=== PATIENT | female | born 1955 | race Caucasian/White ===

== ENCOUNTER 2023-03-10 11:58 | Outpatient (RCR) | payer MEDICARE, OTHER, SELFPAY | END 2023-03-10 23:59 | disposition home or self-care (01) | LOC: RPT 11:58 | PROVIDERS: ATTENDING PHYSICIAN Internal Medicine | DX: G51.0 Bell's palsy (principal); Z73.6 Limitation of activities due to disability | CPT/HCPCS: 97010; 97110; 97124 ==

== ENCOUNTER 2023-03-23 11:34 | Outpatient (RCR) | payer MEDICARE, OTHER, SELFPAY | END 2023-03-23 23:59 | disposition home or self-care (01) | LOC: RPT 11:34 | PROVIDERS: ATTENDING PHYSICIAN Internal Medicine | DX: G51.0 Bell's palsy (principal) | CPT/HCPCS: 97010; 97124 ==